=== PATIENT | male | born 2000 | race Caucasian/White ===

== ENCOUNTER 2023-07-03 19:31 | Emergency (ER) | payer OTHER ==
[~2023-07-03] VITALS: Ht 177.8 cm; Wt 90.7 kg
[2023-07-03 19:31] VITALS: BP 143/86
[2023-07-03] MEDS ORDERED: IBUP400 PO (20:37)
== END 2023-07-03 20:47 | disposition home or self-care (01) ==
LOC: ER 19:31
DX: S51.012A Laceration without foreign body of left elbow, initial encounter (principal); S80.02XA Contusion of left knee, initial encounter; M54.2 Cervicalgia; V89.2XXA Person injured in unspecified motor-vehicle accident, traffic, initial encounter
CPT/HCPCS: 72125; 99284-25; A9270